=== PATIENT | male | born 1935 | race Caucasian/White ===

== ENCOUNTER 2016-12-01 06:08 | Day surgery (SDC) | payer BC ==
--- NOTE | ~2016-12-01 | OP ---
Record Of Operation [facility] [address] [place] [place]. [address] NAME: AUSTIN HANKS : 37 STATUS : REG [facility] [place] PAT#: [id number] AGE: 81 ADM/REG DATE : 12/01/16 MR#: [id number] REPORT SERV DATE: 12/01/16 DICTATED BY: YASMANY HADLEY JR. DATE: 12/01/16 REPORT STATUS : Draft TRANSCRIBED BY: MODL DATE: 12/01/16 DATE OF PROCEDURE: 12/01/2016 PREOPERATIVE DIAGNOSES: Left lower lobe lung mass, mediastinal lymphadenopathy, rule out metastatic bronchogenic carcinoma, chronic atrial fibrillation, chronic obstructive pulmonary disease, hypertension, left pleural effusion. POSTOPERATIVE DIAGNOSIS: Metastatic squamous cell carcinoma. NAME OF OPERATION: Diagnostic and therapeutic bronchoscopy, bronchioalveolar lavage, left lower lobe, endobronchial ultrasound with multiple fine-needle aspirations, mo stations 4L and 7. SURGEON: Yasmany Hadley M.D. RESIDENT SURGEON: Celestino Lyons MD ANESTHESIOLOGIST: Shashi Alamo M.D. FINDINGS: The patient was noted to have an extrinsic compression and narrowing of the left lower lobe bronchus. Distal into the bronchus there was a tumor seen within the airway. This was not biopsied, but was lavaged. It is difficult to get to the actual tumor to biopsy. Endobronchial ultrasound confirmed pathologic lymph nodes in the subcarinal, paratracheal, and hilar regions. We do not stick in the hilar region because it was difficult to avoid the mass. We would not be able to get lymph nodes. The 4R lymph nodes demonstrated metastatic squamous cell carcinoma. The subcarinal lymph nodes had lymphocytes, but no definitive tumor cells. Additional material sent for cell block. Final pathology is pending. DETAILS OF OPERATION: After adequate general anesthesia, the patient was intubated with an LMA. We were having difficulty ventilating him, so we changed to an endotracheal tube. Diagnostic and therapeutic bronchoscopy was performed with the above findings noted. Bronchoalveolar lavage was performed on the left lower lobe. Endobronchial ultrasound was then performed with pathologic lymph nodes in the paratracheal, subcarinal, and hilar regions. Nodes from the left paratracheal and subcarinal were biopsied. Metastatic squamous cell was confirmed. Additional material sent for cell block. Final pathology is pending. This patient is not a surgical candidate. We will await final pathology. /STACIA Yasmany Hadley Jr., M.D. / [id number] Record Of Operation [address] [address] NAME: AUSTIN HANKS : 37 STATUS : REG [facility] – [place] PAT#: [id number] AGE: 81 ADM/REG DATE : 12/01/16 MR#: [id number] REPORT SERV DATE: 12/01/16 DICTATED BY: YASMANY HADLEY JR. DATE: 12/01/16 REPORT STATUS : Draft TRANSCRIBED BY: STACIA DATE: 12/01/16 CC: Jamal Norris Jr., ANDERS EUGENE Robert F Marcum, M.D.
[~2016-12-01 06:08] MED LIST: ALBUTEROL INH; FLOMAX4 PO; JANTOVEN7.5 MG PO; L20 PO; LOP50 PO; PRADAXA150 MG PO; PROAIR HFA INH; PROSCAR5 PO; REOCYTE PLUS PO; SPIRIVA INH; T PO; VOLT75 PO; ZOCOR20 PO
[2016-12-01 06:33] LABS: HEMATOCRIT 41.6 % (40.0-51.0); HEMOGLOBIN 13.7 g/dL (13.6-17.8)
[2016-12-01 06:41] LABS: INTERNATIONAL NORMAL RATI 1.2 UNITS (-); PROTIME (NOT ORD) 14.8 SEC (12.0-14.5)
[2016-12-01 06:53] LABS: BUN (BLOOD UREA NITROGEN) 18 MG/DL (6-23); CHLORIDE, SERUM 108 MMOL/L (96-112); CO2 (CARBON DIOXIDE) 30 MMOL/L (24-34); GFR AFRICAN AMERICAN 38 ML/MIN (>=60); GFR NON AFRICAN AMERICAN 33 ML/MIN (>=60); GLUCOSE, SERUM 94 MG/DL (60-99); POTASSIUM, SERUM 4.7 MMOL/L (3.5-5.3); SODIUM, SERUM 141 MMOL/L (135-148)
[2016-12-02] MEDS ORDERED: LOP50 PO (12:40)
[2016-12-02] MEDS ORDERED: JANTOVEN7.5 MG PO (12:40)
[2016-12-02] MEDS ORDERED: ZOCOR20 PO (12:40)
[2016-12-02] MEDS ORDERED: SPIRIVA INH (12:40)
[2016-12-02] MEDS ORDERED: FLOMAX4 PO (12:40)
[2016-12-02] MEDS ORDERED: PROAIR HFA INH (12:41)
[2016-12-02] MEDS ORDERED: DUONEB INH (12:41)
[2016-12-02] MEDS ORDERED: ACET500CAP PO (12:41)
== END 2016-12-01 23:59 | disposition home health service (06) ==
LOC: DMU 06:08
PROVIDERS: Anesthesiology; Thoracic Surgery (Cardiothoracic Vascular Surgery)
PROC: 0B9B8ZZ Drainage of Left Lower Lobe Bronchus, Via Natural or Artificial Opening Endoscopic (ICD-10-PCS; principal; 2016-12-01 08:00)
PROC: 0B9B8ZX Drainage of Left Lower Lobe Bronchus, Via Natural or Artificial Opening Endoscopic, Diagnostic (ICD-10-PCS; 2016-12-01 08:00)
DX: C78.02 Secondary malignant neoplasm of left lung (principal); J44.9 Chronic obstructive pulmonary disease, unspecified; E78.5 Hyperlipidemia, unspecified; I12.9 Hypertensive chronic kidney disease with stage 1 through stage 4 chronic kidney disease, or unspecified chronic kidney disease; G47.33 Obstructive sleep apnea (adult) (pediatric); I73.9 Peripheral vascular disease, unspecified; Z87.891 Personal history of nicotine dependence; Z88.0 Allergy status to penicillin; Z79.899 Other long term (current) drug therapy; I48.2 Chronic atrial fibrillation; N18.9 Chronic kidney disease, unspecified; E66.01 Morbid (severe) obesity due to excess calories; Z79.01 Long term (current) use of anticoagulants; N40.0 Benign prostatic hyperplasia without lower urinary tract symptoms; Z99.81 Dependence on supplemental oxygen; I25.10 Atherosclerotic heart disease of native coronary artery without angina pectoris
CPT/HCPCS: 80048; 85014; 85018; 85610; 88112; 88172; 88173; 88177; 88305; 93005; A9270-GY; C1725; J0330; J2250; J2370; J2405; J3010

== ENCOUNTER 2016-12-02 11:26 | Inpatient (IN) | payer BC ==
--- NOTE | ~2016-12-02 | HP ---
History And Physical [place] [id number] [facility] [place]. [address] NAME: AUSTIN HANKS : 37 STATUS : ADM IN [facility]#: [id number] AGE: 81 ADM/REG DATE : 12/02/16 MR#: [id number] REPORT SERV DATE: 12/02/16 DICTATED BY: TORY GARCIA DATE: 12/02/16 REPORT STATUS : Draft TRANSCRIBED BY: MODFany DATE: 12/02/16 DATE OF ADMISSION: 12/02/2016 CHIEF COMPLAINT: Shortness of breath. HISTORY OF PRESENT ILLNESS: The patient is a very pleasant 81-year-old white male. The patient underwent imaging studies and ultimately was found to have a new mass on CT in the left infrahilar region apparently. He actually went for bronchoscopy yesterday with Dr. Hadley. He was unable to biopsy the mass, but did biopsy lymph nodes, in preliminary, it looks like he has metastatic squamous cell carcinoma. The patient normally wears about 4 liters of O2 at night and 2 liters during the day p.r.n. He states over the last 48 hours he has had increased shortness of breath. He has a cough, but that is somewhat chronic. He has blood-tinged sputum at times, that too is chronic. He had an attempted bronch on 11/10 out in [place] with his primary transliterator, but he was unable to reach the mass, thus he was referred to Dr. Hadley for EBUS. His shortness of breath seems to get worse with any kind of activity. He is okay resting on 2 liters. He has had no chest pain. No nausea, vomiting, or diarrhea. No abdominal pain. No other real symptoms other than dyspnea. He has had some ankle and feet that have been swollen. PAST MEDICAL HISTORY: 1. Newly diagnosed squamous cell lung CA, considered metastatic and diagnosis due to lymph node involvement. Official path is pending. 2. Hemoptysis. 3. AFib. 4. COPD on 4 liters at night and 2 liters during the day. 5. Hyperlipidemia. 6. Hypertension. 7. Previous left-sided pleural effusion, status post thoracentesis in October. 8. Sleep apnea, but does not comply with CPAP. 9. CKD with baseline creatinine around 1.9. His CKD is due to effectively a solitary kidney following an injury to the kidney in surgery. 10.Left bundle-branch block, which is chronic. PAST SURGICAL HISTORY: He has had a colon resection, bilateral total knee arthroplasties, leg femur repair from a fracture, facial fracture repair, and TURP. FAMILY HISTORY: CAD in his mom. CHF in his mom. Stomach cancer in his dad. ALLERGIES: PENICILLIN. SOCIAL HISTORY: He quit smoking about 20 years ago. He smoked one and a half packs per day for 40 years. He uses occasional alcohol. REVIEW OF SYSTEMS: A full 10-point review of systems obtained, pertinent positives are mentioned in the HPI. History And Physical [address] [address] NAME: AUSTIN HANKS : 37 STATUS : ADM IN [facility]#: [id number] AGE: 81 ADM/REG DATE : 12/02/16 MR#: [id number] REPORT SERV DATE: 12/02/16 DICTATED BY: TORY GARCIA DATE: 12/02/16 REPORT STATUS : Draft TRANSCRIBED BY: STACIA DATE: 12/02/16 PHYSICAL EXAMINATION: GENERAL: Well-developed white male, in no apparent distress. HEENT: Normocephalic and atraumatic. Throat is clear. NECK: Supple. HEART: Irregularly irregular, but no murmurs, rubs, or gallops. LUNGS: He has expiratory wheezing in the lower lobes and he is diminished at the left base. ABDOMEN: Soft, nontender, and nondistended. EXTREMITIES: Warm and dry. He has 1 to 2+ pedal edema. NEURO: He is alert. He is oriented to person, place, and time. He has symmetrical strength and tone in all four extremities. SKIN: He has no active rashes or lesions. PSYCH: His mood and affect are appropriate. LABORATORY AND X-RAY: White count is 8, H and H 12 and 36, platelet count is 156. Coags are normal. Chemistry panel is normal other than a BUN of 21, creatinine 1.72, and glucose 118. Troponin 0.02. PA and lateral chest x-ray shows increased left pleural effusion and left lower lobe consolidation and some mild volume overload or CHF pattern. BNP is 372. Lactate is 1.3. Procalcitonin is 0.05. EKG shows a chronic left bundle. ASSESSMENT/PLAN: 1. Dyspnea with relative hypoxemia upon ambulation. Differential is broad. However, given his findings on chest x-ray, one would suspect he either has reaccumulation of pleural effusion plus or minus pneumonia and also must consider pulmonary edema. His last ejection fraction on stress test was normal. I am going to do an echo just to be sure his BNP is up slightly, but he has chronic kidney disease, it is difficult to tell. I think we have to consider this could be effusion, could be pneumonia, I am going to do CT of the chest to further evaluate the area. I am going to cover him for pneumonia with empiric cefepime and vancomycin given the fact that he just had a procedure yesterday. We will culture his blood, his sputum. Once his CT is back, we can determine whether or not this is fluid or not, and if it is, we may perform thoracentesis. He does have a slightly elevated BNP and evidence of possibly some edema on chest x-ray, I think it is reasonable to give him a couple of doses of Lasix just to see if this improves his symptomatology. We will continue his O2. We will place him on aggressive bronchodilator therapy and Dr. Hadley was called by the ER and he is going to see the patient in consultation given that he just had a procedure yesterday. 2. Newly diagnosed probable squamous cell carcinoma of the lung, per Dr. Hadley, we will need to have referral outpatient oncology at discharge. 3. Atrial fibrillation, currently off Pradaxa, rate controlled. 4. Chronic obstructive pulmonary disease, wears 4 liters at h.s. and wearing 2 liters during the day p.r.n. Again, aggressive bronchodilator therapy and oxygen. 5. History of obstructive sleep apnea, noncompliant with CPAP. 6. History of hypertension. 7. Chronic kidney disease, stable in the baseline of 1 liter. We will need to watch closely with Lasix. 8. Deep venous thrombosis prophylaxis. Subcutaneous heparin. 9. Disposition. Pending above. History And Physical [address] [place]. [address] NAME: AUSTIN HANKS : 37 STATUS : ADM IN [facility]#: [id number] AGE: 81 ADM/REG DATE : 12/02/16 MR#: [id number] REPORT SERV DATE: 12/02/16 DICTATED BY: TORY GARCIA DATE: 12/02/16 REPORT STATUS : Draft TRANSCRIBED BY: STACIA DATE: 12/02/16 MARCOS/STACIA Tory Garcia M.D. / [id number] CC: Emani Ramires MD
--- NOTE | ~2016-12-02 | DS ---
Discharge Summary [facility] [address] [place]. [address] NAME: AUSTIN HANKS : 37 STATUS : DIS IN PAT#: [id number] AGE: 81 ADM/REG DATE : 12/02/16 MR#: [id number] REPORT SERV DATE: 12/10/16 DICTATED BY: DATE: REPORT STATUS : Draft TRANSCRIBED BY: MODL DATE: 12/06/16 ADMISSION DATE: 12/02/2016 DISCHARGE DATE: 12/06/2016 CONSULTANTS: Included Critical Care Medicine, Hematology-Oncology, Radiation Oncology, Thoracic Surgery. DISCHARGE DIAGNOSES: 1. Stage IIIB non-small cell lung cancer-declining chemotherapy and radiation therapy. Electing for hospice intake post-discharge. 2. Acute hypoxemic hypercapnic respiratory failure. 3. Acute exacerbation of chronic obstructive pulmonary disease. 4. Postobstructive pneumonia. 5. Atrial fibrillation with rapid ventricular response at admission. 6. Acute congestive heart failure exacerbation, systolic. Ejection fraction 30%. Unknown chronicity. 7. Chronic kidney disease stage III and history of solitary kidney. 8. Obstructive sleep apnea with history of CPAP noncompliance. IMAGIN. PA and lateral chest x-ray 12/02/2016 shows increasing left pleural effusion and left lower lobe consolidation. Mild volume overload or CHF pattern. No evidence of pneumothorax or pneumomediastinum. 2. Chest CT without contrast 12/02/2016 increased prominence of dense masslike consolidation in the anterior left lower lobe extending from the base to the hilum, now measuring 3.9 x 5.3 cm. May represent lung neoplasm versus underlying infectious or inflammatory process. Increased size of reticulonodular opacity in the left upper lobe. Significantly increased bulky mediastinal lymphadenopathy. Diffuse ground-glass density and interlobular septal thickening throughout the lungs likely representing edema. Moderate left pleural effusion and small right pleural effusion. Severe chronic appearing left hydronephrosis with prominent renal cortical thinning on the left. Cholelithiasis but no CT evidence for acute cholecystitis. Stable mild cardiomegaly with moderate coronary artery calcification. 3. Portable chest x-ray 12/02/2016 shows stable chest x-ray. 4. Echocardiogram 12/03/2016 moderate severe left ventricle dysfunction at 30%. [place] appears akinetic. Moderately decreased right ventricle systolic function. No significant valvular dysfunction. No prior study for comparison. 5. PA and lateral chest x-ray 12/06/2016 shows vascular congestion has resolved. Residual left pleural effusion and left lower lobe atelectasis are unchanged from prior study. PERTINENT LABS: On admission, pH 7.33, pCO2 46, pO2 92, oxygen saturation 97% on BiPAP with FiO2 40%. Creatinine values ranging from 1.9 to 2.0 during the admission. Normal electrolytes. Troponin x two negative. BNP 372. Lactate 2.3. Initial white blood cell count 12.2, as high as 18.1 with discharge value 13.7, hemoglobin 14.1, hematocrit 43.3, and platelets 185. INR at discharge 1.3. Discharge Summary [place] [address] [place]. [address] NAME: AUSTIN HANKS : 37 STATUS : DIS IN PAT#: [id number] AGE: 81 ADM/REG DATE : 12/02/16 MR#: [id number] REPORT SERV DATE: 12/10/16 DICTATED BY: DATE: REPORT STATUS : Draft TRANSCRIBED BY: MODL DATE: 12/06/16 BRIEF HISTORY: For full details, please see the previously dictated history of present illness by Dr. Denise Garcia. The patient was admitted from the emergency department on 12/02/2016 after presenting with increasing shortness of breath following a bronchoscopy with lymph node biopsy on . Preliminary pathology was consistent with metastatic squamous cell carcinoma. He was admitted to [facility] for further evaluation but immediately developed respiratory decompensation and was transferred to the intensive care unit for continuous BiPAP therapy. HOSPITAL COURSE: There is no interim summary for dates of service in the intensive care unit, but from review of the progress notes it appears that the patient was managed on continuous BiPAP for approximately 24 hours, diuresed, continued on IV antibiotics of cefepime and vancomycin. The etiology of his acute on chronic hypercapnic respiratory failure was multifactorial and felt due to acute exacerbation of COPD with post-obstructive pneumonia and acute pulmonary edema with newly diagnosed ejection fraction of 30%. The patient improved in response to those measures and was able to be transferred out of the Intensive Care Unit on the afternoon of 12/03/2016. I assumed care of him on 12/04/2016. He had no dyspnea and his oxygen requirements were stable on his home oxygen needs of two to four liters by nasal cannula. He had been seen by Thoracic Surgery and was felt to be a nonoperative candidate due to advanced lung cancer at diagnosis as well as comorbid conditions. Consultation was obtained from Medical Oncology who outlined several different treatment options for the patient including concurrent chemotherapy and radiation therapy, palliative radiation therapy, immunotherapy, or palliation with hospice. The patient took several days to think about this and discuss with his family, and ultimately elected for hospice measures only. He is being discharged home today, and [facility] will follow up with him at home to complete the intake process. Regarding his atrial fibrillation with rapid ventricular response, rates are much improved with the addition of Cardizem to his regimen which we continued at discharge. His Coumadin was resumed during the hospitalization with subtherapeutic INR at discharge and will need to be followed by home health or hospice. He is also being discharged on a diuretic to prevent reaccumulation of pulmonary edema and pleural effusions, and an additional four days of antibiotics to complete a seven-day total course for postobstructive pneumonia. DISPOSITION: To home in the care of supportive family, to continue using oxygen two to four liters continuously, with followup as per [facility]. DISCHARGE MEDICATIONS: 1. Cardizem 30 mg p.o. twice a day. 2. Furosemide 40 mg p.o. daily. 3. Levaquin 750 mg p.o. every 48 hours x two doses on 12/07/2016 and 12/09/2016. 4. Lopressor 50 mg p.o. twice a day. 5. Simvastatin 20 mg p.o. at bedtime. 6. Flomax 0.4 mg p.o. at bedtime. 7. Warfarin 7.5 mg p.o. at bedtime. Discharge Summary [address] [address] NAME: AUSTIN HANKS : 37 STATUS : DIS IN PAT#: [id number] AGE: 81 ADM/REG DATE : 12/02/16 MR#: [id number] REPORT SERV DATE: 12/10/16 DICTATED BY: DATE: REPORT STATUS : Draft TRANSCRIBED BY: MODL DATE: 12/06/16 8. Flagyl 500 mg p.o. every 8 hours for four days. 9. ProAir HFA two puffs inhaled as needed for shortness of breath. 10.Spiriva one cap inhaled daily. 11.DuoNeb one neb inhaled four times a day as needed for shortness of breath. 12.Tylenol 500 mg p.o. daily as needed for pain. 13.Medrol Dosepak, dispense one and take as directed. Thirty minutes were spent in completion of the discharge. DICTATED BY: Jamal Nuno/STACIA Ashish Reyna M.D. / [id number] CC: Jamal Nuno MD [facility]
--- NOTE | ~2016-12-02 | CN ---
Consultation Report [facility] [address] [place]. [address] NAME: AUSTIN HANKS : 37 STATUS : ADM IN PAT#: [id number] AGE: 81 ADM/REG DATE : 12/02/16 MR#: [id number] REPORT SERV DATE: 12/02/16 DICTATED BY: ROMAN GONZALEZ DATE: 12/02/16 REPORT STATUS : Draft TRANSCRIBED BY: MODL DATE: 12/02/16 DATE OF CONSULTATION: HISTORY OF PRESENT ILLNESS: This is an 81-year-old white male who was admitted today, 12/02/2016, one day after having had bronchoscopy/endobronchial ultrasound. He has a known left lower lobe lung mass and had an endobronchial ultrasound with biopsies of level 7 and level 4L lymph nodes. The level 4L lymph node was positive for malignancy. Apparently from talking to Dr. Hadley's mid-level, the patient had pleural effusion that was tapped recently and it was deemed to be not malignant. We are waiting for records from his office to verify that and get more information. He was admitted today for worsening shortness of breath since his surgery. He went to the floor and a rapid response team was called for increasing shortness of breath and wheezing and accessory muscle use. By the time I got to the room, the patient was on bilevel 20/8 and his tidal volumes were between 600 and 700 mL of exhaled tidal volume. His FiO2 was 100% and he was breathing much calmer. Both his daughter and son were present at bedside. Chest x-ray done at the time of the rapid response showed a density in the left lower lobe, it could probably consistent with his known pleural effusion and lung mass. Otherwise, no evidence of pneumothorax. There are some marked increased interstitial lung markings. The EKG did show atrial fibrillation with increased heart rate. REVIEW OF SYSTEMS: He has a little bit of blood tinge cough one time at home prior to coming to the hospital. He states that he is feeling much better since being on the bilevel machine. Apparently, he has had no other issues of chest pain, nausea, vomiting, abdominal pain, diarrhea, or fever at home. No worsening leg swelling or rashes or change in his mentation. PAST MEDICAL HISTORY: Hypertension, atrial fibrillation, COPD, newly diagnosed non-small cell lung cancer, chronic kidney dysfunction, and obesity. PAST SURGICAL HISTORY: Partial colon resection, surgery after fractured femur, and bilateral knee replacement for arthritis. ALLERGIES: PENICILLIN. HOME MEDICATIONS: Reviewed. FAMILY HISTORY: actually of lung cancer. PHYSICAL EXAMINATION: VITAL SIGNS: Per nursing flow sheet. GENERAL: [id number] distress, but much better on the bilevel machine. The patient is alert. NEURO: The patient moves all extremities. Cooperative, maintains good eye contact. HEENT: Normocephalic and atraumatic. Consultation Report [address] [place]. [address] NAME: AUSTIN HANKS : 37 STATUS : ADM IN [facility]#: [id number] AGE: 81 ADM/REG DATE : 12/02/16 MR#: [id number] REPORT SERV DATE: 12/02/16 DICTATED BY: ROMAN GONZALEZ DATE: 12/02/16 REPORT STATUS : Draft TRANSCRIBED BY: STACIA DATE: 12/02/16 NECK: Trachea midline. HEART: Tachycardic and irregular. No murmurs. LUNGS: Decreased breath sounds at the lung bases. No significant accessory muscle use on bilevel 20/8. No obvious wheeze. GI: Mild abdominal hernia that is reducible. Soft, nontender, nondistended. No guarding, rebound, or rigidity. EXTREMITIES: Trace bilateral leg edema. SKIN: No obvious rash or mottling. LABORATORY DATA: Reviewed. CAT scans and chest x-rays were reviewed. ASSESSMENT/PLAN: 1. Acute hypercapnic respiratory failure. 2. Chronic obstructive pulmonary disease. 3. Newly diagnosed non-small cell lung cancer, at least stage III. 4. Atrial fibrillation with rapid ventricular response. 5. Left greater than right pleural effusion. 6. Chronic kidney disease. The patient moved to the ICU for further monitoring. The patient will stay on the bilevel machine for now. DuoNeb every four hours around the clock. He is a full code at this point in time. Stop the Spiriva for now. Add Solu-Medrol for the wheeze. Given atrial fibrillation, we will have Cardizem drip available and try to keep his heart rate less than 110. He is on DVT prophylaxis with subcu heparin right now. Check morning labs. He is on one antibiotic that was started by the hospitalist team. We will monitor for signs of infection and determine whether to continue this or stop it. Son and daughter were updated. 40 minutes of critical care time. CEP/MODL Roman Gonzalez DO / [id number] CC: Emani Ramires MD
--- NOTE | ~2016-12-02 | CONSULT ---
Radiation Oncology Consult [address] [address] NAME: AUSTIN DELAROSA : 37 STATUS : DIS IN PAT#: [id number] AGE: 81 ADM/REG DATE : 12/02/16 MR#: [id number] REPORT SERV DATE: 12/08/16 DICTATED BY: DANIEL WALLER DATE: 12/08/16 REPORT STATUS : Draft TRANSCRIBED BY: MODFany DATE: 12/08/16 RADIATION ONCOLOGY CONSULTATION HISTORY OF PRESENT ILLNESS: Mr. Delarosa is an 81-year-old gentleman, recently diagnosed with at least stage III non-small cell lung cancer. The patient has a poor performance status and lives in [facility]. CT scan of his chest reveals a 3.9 x 5.3 cm left lower lobe primary which lies behind the heart. In addition, there is bulky mediastinal lymphadenopathy with metastatic nodes on both sides. In addition, he has bilateral pleural effusions, left greater than right. The patient is ready for discharge. He has been offered hospice care to which he is leaning. Radiation Oncology has been consulted for any need for palliative treatment. In consultation today, Mr. Delarosa denies any hemoptysis, chest pain, or swallowing difficulties. ALLERGIES: PENICILLIN. MEDICATIONS: See MAR. FAMILY HISTORY: Positive for coronary artery disease, congestive heart failure, and gastric cancer. SOCIAL HISTORY: The patient quit smoking 20 years ago. His recently . He lives with his daughter. REVIEW OF SYSTEMS: An extended review of systems was performed. It was negative for fever, chills, night sweats, or weight loss. PHYSICAL FINDINGS: GENERAL: Reveals a pleasant, elderly white male with nasal oxygen in place. There is no supraclavicular lymphadenopathy. LUNGS: Lungs were not auscultated. ABDOMEN: Abdomen was not examined. EXTREMITIES: Without cyanosis or clubbing. PSYCH: Alert and oriented x3. NEUROLOGIC: Grossly intact. X-RAYS: Recent CT scan of the chest was personally reviewed by me. IMPRESSION: At least stage IIIB non-small cell lung cancer with the PS of 2. RECOMMENDATION: Since Mr. Delarosa is not experiencing hemoptysis, chest pain, or dysphagia, there are no symptoms to palliate with radiation. He is very comfortable with the suggestion of going home under the care of hospice. His daughter has already identified a local hospice that can care for him. I again explained what symptoms would need palliative treatment, none of which Mr. Delarosa is experiencing at this point. I am comfortable with this decision and will be available as needed. Radiation Oncology Consult [address] [place] [place]. [address] NAME: AUSTIN DELAROSA : 37 STATUS : DIS IN PAT#: [id number] AGE: 81 ADM/REG DATE : 12/02/16 MR#: [id number] REPORT SERV DATE: 12/08/16 DICTATED BY: DANIEL WALLER DATE: 12/08/16 REPORT STATUS : Draft TRANSCRIBED BY: STACIA DATE: 12/08/16 EE/STACIA Daniel Waller M.D. / [id number] CC: Jamal Nuno MD
--- NOTE | ~2016-12-02 | CN ---
Consultation Report [facility] [address] [place]. [address] NAME: AUSTIN DELAROSA : 37 STATUS : ADM IN PAT#: [id number] AGE: 81 ADM/REG DATE : 12/02/16 MR#: [id number] REPORT SERV DATE: 12/04/16 DICTATED BY: CRIS LAIRD DATE: 12/04/16 REPORT STATUS : Draft TRANSCRIBED BY: MODL DATE: 12/04/16 ONCOLOGY CONSULTATION DATE OF CONSULTATION: REASON FOR CONSULTATION: Rwu-azsxv-cams lung cancer. CHIEF COMPLAINT: Shortness of breath. HISTORY OF PRESENT ILLNESS: The patient is a troy 81-year-old male with past medical history significant for atrial fibrillation, COPD, hypertension, hyperlipidemia, chronic kidney disease, HARJEET, left bundle branch block. He states that he has had a close followup with Pulmonology in [place], [place]. He has had multiple PET-CT scans, which showed an enlarging left lower lobe nodule. He also had left-sided thoracentesis, which was nondiagnostic. He had several attempts at bronchoscopy, which were nondiagnostic. He was referred to Dr. Hadley, who attempted bronchoscopy and endobronchial ultrasound yesterday. 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 The patient was briefly observed in the ICU, then transferred to the floor. Currently, he is hypoxic, on 4 L of oxygen nasal cannula. He is afebrile. He has shortness of breath with very mild exertion. He denies hemoptysis or weight loss. PAST MEDICAL HISTORY: 1. Kmd-hidst-lczt lung cancer. 2. Atrial fibrillation. 3. COPD. 4. Hyperlipidemia. 5. Hypertension. 6. Obstructive sleep apnea. 7. Chronic kidney disease. 8. Left bundle branch block. ALLERGIES: PENICILLIN. MEDICATIONS: Current medications include cefepime, diltiazem, heparin, Solu-Medrol, metoprolol, simvastatin, tamsulosin, and p.r.n. medications for pain and nausea. FAMILY HISTORY: Notable for coronary artery disease, CHF, and gastric cancer in his father. SOCIAL HISTORY: Quit smoking 20 years ago. The patient smoked 1 to 1-1/2 packs per day for 40 years. Social alcohol only. Very supportive and loving family. REVIEW OF SYSTEMS: An 11 system review of systems was obtained and is negative except for the history of Consultation Report [place] [id number] [facility] [place]. [address] NAME: AUSTIN DELAROSA : 37 STATUS : ADM IN PAT#: [id number] AGE: 81 ADM/REG DATE : 12/02/16 MR#: [id number] REPORT SERV DATE: 12/04/16 DICTATED BY: CRIS LAIRD DATE: 12/04/16 REPORT STATUS : Draft TRANSCRIBED BY: MODL DATE: 12/04/16 present illness. PHYSICAL EXAMINATION: GENERAL: No acute distress, in pleasant spirits. VITAL SIGNS: Temperature 97.4, pulse 76, respirations 18, blood pressure 133/60, O2 saturation 97% on 4 L O2 by nasal cannula. HEAD: Atraumatic and normocephalic. EYES: Anicteric, extraocular movements intact. EARS, NOSE, THROAT: No thrush or mucositis. LYMPH NODE SURVEY: No palpable cervical, supraclavicular, or axillary lymph nodes. PULMONARY: Decreased breath sounds throughout with end-expiratory wheezes bilaterally. CARDIAC: Regular rate and rhythm without murmurs. ABDOMEN: Soft, nontender, and nondistended with bowel sounds. EXTREMITIES: No clubbing or cyanosis. Trace bilateral lower extremity edema. PSYCHIATRIC: Alert and oriented x3. Mood and affect are appropriate. Good insight. NEUROLOGIC: Grossly nonfocal. LABORATORY STUDIES: CBC-white count 18.1, hemoglobin 13, hematocrit 39%, platelets 163. Chemistries-significant for creatinine of 1.89. Imaging-I reviewed the CT scan personally. The left lower lobe mass is demonstrated with left greater than right-sided effusions. Mediastinal lymphadenopathy is apparent, both ipsilateral and contralateral to the tumor. ASSESSMENT AND PLAN: This is a very nice 81-year-old gentleman with multiple medical comorbidities, who presents with at least a stage III jsm-gppbk-jnff lung cancer. He also has significant hypoxia, underlying chronic obstructive pulmonary disease, chronic kidney disease, and borderline performance status. This is a very difficult situation. Therefore, options for care: 1. Concurrent chemoradiation therapy with curative intent. I do not think he would be able to tolerate this at the present time. I believe our success rate would be very low. 2. Palliative intent, short course radiation therapy. This would be with the intent to improve his oxygenation. I am unsure if this is possible and will need to confer with colleagues. 3. Immunotherapy with Keytruda or pembrolizumab. This would be a palliative, IV treatment, which will be done in the outpatient setting. This would only be possible if this tumor expressed high levels of PD-1. 4. Palliative or hospice care. I discussed these options with the patient and the family. Mr. Delarosa tells me that "I have lived 81 years." He feels that he has had a rich life, and at the current time, is considering palliative and hospice care alone. I will return tomorrow and then confer with colleagues as to the radiation option. The final plans to follow. Consultation Report [address] [place]. [address] NAME: AUSTIN DELAROSA : 37 STATUS : ADM IN PAT#: [id number] AGE: 81 ADM/REG DATE : 12/02/16 MR#: [id number] REPORT SERV DATE: 12/04/16 DICTATED BY: CRIS LAIRD. DATE: 12/04/16 REPORT STATUS : Draft TRANSCRIBED BY: STACIA DATE: 12/04/16 Thank you very much for this referral. [facility] Cris Laird M.D. / [id number] CC: Jamal Nuno
[2016-12-02 11:25] LABS: BASOPHILS 0.2 %; BASOPHILS ABSOLUTE 0.02 10/3/uL (0.0-0.16); EOSINOPHILS 3.3 %; EOSINOPHILS ABSOLUTE 0.27 10/3/uL (0.0-0.53); ER CBC TAT 0 Hrs 05 Mins; HEMOGLOBIN 11.9 g/dL (13.6-17.8); IMMATURE GRANULOCYTES 0.1 %; IMMATURE GRANULOCYTES ABSOLUTE 0.01 10/3/uL (0.0-0.11); LYMPHOCYTES ABSOLUTE 2.02 10/3/uL (0.67-4.30); MEAN CORPUS HGB CONC 32.8 g/dL (32.0-36.0); MEAN CORPUSCULAR HEMOGLOB 28.9 pg (26.0-34.0); MEAN PLATELET VOLUME 8.9 fL (9.2-13.0); MONOCYTES 12.4 %; NEUTROPHILS ABSOLUTE 4.75 10/3/uL (2.02-8.40); PLATELET COUNT 156 10/3/uL (150-400); RED CELL COUNT 4.12 10/6/uL (4.7-6.1); WHITE BLOOD CELLS 8.1 10/3/uL (4.5-10.5)
[2016-12-02 11:26] LABS: HEMATOCRIT 36.3 % (40.0-51.0); MANUAL DIFF NO %; MEAN CORPUSCULAR VOLUME 88.1 fL (80-100)
[2016-12-02 11:35] LABS: INTERNATIONAL NORMAL RATI 1.3 UNITS (-); PARTIAL THROMBO TIME 34.6 SEC (22.5-37.2); PROTIME (NOT ORD) 16.5 SEC (12.0-14.5)
[2016-12-02 11:42] LABS: BUN (BLOOD UREA NITROGEN) 21 MG/DL (6-23); CALCIUM, SERUM 8.3 MG/DL (8.5-10.4); CHEST PAIN PROFILE TAT 0 Hrs 22 Mins; CHLORIDE, SERUM 106 MMOL/L (96-112); CO2 (CARBON DIOXIDE) 31 MMOL/L (24-34); CREATININE 1.72 MG/DL (0.70-1.30); GFR AFRICAN AMERICAN 43 ML/MIN (>=60); GFR NON AFRICAN AMERICAN 37 ML/MIN (>=60); POTASSIUM, SERUM 4.7 MMOL/L (3.5-5.3); SODIUM, SERUM 140 MMOL/L (135-148); TROPONIN I 0.02 NG/ML (<0.05)
[2016-12-02 11:45] LABS: GLUCOSE, SERUM 118 MG/DL (60-99)
[2016-12-02] MEDS ORDERED: FLOMAX4 PO (12:40)
[2016-12-02] MEDS ORDERED: LOP50 PO (12:40)
[2016-12-02] MEDS ORDERED: SPIRIVA INH (12:40)
[2016-12-02] MEDS ORDERED: ZOCOR20 PO (12:40)
[2016-12-02] MEDS ORDERED: JANTOVEN7.5 MG PO (12:40)
[2016-12-02] MEDS ORDERED: DUONEB INH (12:41)
[2016-12-02] MEDS ORDERED: ACET500CAP PO (12:41)
[2016-12-02] MEDS ORDERED: PROAIR HFA INH (12:41)
[2016-12-02 17:36] LABS: BASOPHILS 0.2 %; BASOPHILS ABSOLUTE 0.03 10/3/uL (0.0-0.16); EOSINOPHILS 1.8 %; EOSINOPHILS ABSOLUTE 0.22 10/3/uL (0.0-0.53); HEMOGLOBIN 13.6 g/dL (13.6-17.8); IMMATURE GRANULOCYTES 0.2 %; IMMATURE GRANULOCYTES ABSOLUTE 0.03 10/3/uL (0.0-0.11); LYMPHOCYTES 11.5 %; LYMPHOCYTES ABSOLUTE 1.41 10/3/uL (0.67-4.30); MEAN CORPUS HGB CONC 32.9 g/dL (32.0-36.0); MEAN CORPUSCULAR VOLUME 88.1 fL (80-100); MEAN PLATELET VOLUME 9.4 fL (9.2-13.0); MONOCYTES 7.9 %; MONOCYTES ABSOLUTE 0.97 10/3/uL (0.21-1.20); NEUTROPHILS 78.4 %; NEUTROPHILS ABSOLUTE 9.57 10/3/uL (2.02-8.40); PLATELET COUNT 151 10/3/uL (150-400); RBC DISTRIBUTION WIDTH 14.8 % (12.0-16.0); RED CELL COUNT 4.69 10/6/uL (4.7-6.1)
[2016-12-02 17:38] LABS: HEMATOCRIT 41.3 % (40.0-51.0); MANUAL DIFF NO %; WHITE BLOOD CELLS 12.2 10/3/uL (4.5-10.5)
[2016-12-02 17:41] LABS: ALBUMIN 3.2 G/DL (3.5-5.0); BUN (BLOOD UREA NITROGEN) 20 MG/DL (6-23); CHLORIDE, SERUM 107 MMOL/L (96-112); CREATININE 1.81 MG/DL (0.70-1.30); GFR AFRICAN AMERICAN 40 ML/MIN (>=60); GFR NON AFRICAN AMERICAN 35 ML/MIN (>=60); GLUCOSE, SERUM 136 MG/DL (60-99); POTASSIUM, SERUM 4.6 MMOL/L (3.5-5.3); SGOT(AST) 29 U/L (5-40); SGPT(ALT) 23 U/L (5-65); SODIUM, SERUM 139 MMOL/L (135-148); TOTAL BILIRUBIN 0.7 MG/DL (0-1.2); TOTAL PROTEIN 7.8 G/DL (6.0-8.5); TROPONIN I 0.02 NG/ML (<0.05)
[2016-12-02 17:42] LABS: A/G RATIO 0.7 (0.7-1.9); ALKALINE PHOSPHATASE 69 U/L (45-117); CO2 (CARBON DIOXIDE) 24 MMOL/L (24-34); GLOBULIN 4.6 G/DL (2.5-4.1)
[2016-12-02 17:43] LABS: INTERNATIONAL NORMAL RATI 1.3 UNITS (-); PROTIME (NOT ORD) 16.1 SEC (12.0-14.5)
[2016-12-02 18:15] LABS: BE (BASE EXCESS) -2.1 MEQ/L (0 +/- 2.5); CARBOXYHEMOGLOBIN 0.9 % (0-3); INSTRUMENT SERIAL # 35151; METHEMOGLOBIN 0.5 % (0-3); O2 CONTENT 18.8 VOL% (18-24); PCO2 (CO2 TENSION) 46 MMHG (35-45); PO2 (O2 TENSION) 92 MMHG (79-93); SAMPLE Arterial; pH 7.33 (7.37-7.43)
[2016-12-02 18:16] LABS: ALLENS TEST Pos; BIPAP 20/8 cm.H2O
[2016-12-03 03:26] LABS: ALLENS TEST Pos; BE (BASE EXCESS) -0.4 MEQ/L (0 +/- 2.5); BIPAP 15/5 cm.H2O; CARBOXYHEMOGLOBIN 0.7 % (0-3); HCO3 (ACTUAL BICARBONATE) 24.9 MEQ/L (23-27); HEMOBLOGIN CONTENT 13.7 G/DL (14-18); INSTRUMENT SERIAL # 35151; METHEMOGLOBIN 0.4 % (0-3); O2 CONTENT 18.9 VOL% (18-24); OPERATOR ID 35785; PCO2 (CO2 TENSION) 43 MMHG (35-45); PO2 (O2 TENSION) 122 MMHG (79-93); SAMPLE Arterial; pH 7.38 (7.37-7.43)
[2016-12-03 04:11] LABS: BASOPHILS 0 %; EOSINOPHILS 0 %; HEMATOCRIT 39.4 % (40.0-51.0); HEMOGLOBIN 12.8 g/dL (13.6-17.8); IMMATURE GRANULOCYTES 0.3 %; IMMATURE GRANULOCYTES ABSOLUTE 0.02 10/3/uL (0.0-0.11); LYMPHOCYTES 10.2 %; LYMPHOCYTES ABSOLUTE 0.68 10/3/uL (0.67-4.30); MEAN CORPUS HGB CONC 32.5 g/dL (32.0-36.0); MEAN CORPUSCULAR HEMOGLOB 28.8 pg (26.0-34.0); MEAN CORPUSCULAR VOLUME 88.7 fL (80-100); MEAN PLATELET VOLUME 9.5 fL (9.2-13.0); MONOCYTES 3.3 %; MONOCYTES ABSOLUTE 0.22 10/3/uL (0.21-1.20); NEUTROPHILS 86.2 %; NEUTROPHILS ABSOLUTE 5.77 10/3/uL (2.02-8.40); PLATELET COUNT 157 10/3/uL (150-400); RBC DISTRIBUTION WIDTH 14.7 % (12.0-16.0); RED CELL COUNT 4.44 10/6/uL (4.7-6.1)
[2016-12-03 04:12] LABS: MANUAL DIFF NO %; WHITE BLOOD CELLS 6.7 10/3/uL (4.5-10.5)
[2016-12-03 04:36] LABS: A/G RATIO 0.7 (0.7-1.9); ALBUMIN 2.9 G/DL (3.5-5.0); CALCIUM, SERUM 8.8 MG/DL (8.5-10.4); CHLORIDE, SERUM 104 MMOL/L (96-112); CO2 (CARBON DIOXIDE) 26 MMOL/L (24-34); CREATININE 1.89 MG/DL (0.70-1.30); GFR AFRICAN AMERICAN 38 ML/MIN (>=60); GFR NON AFRICAN AMERICAN 33 ML/MIN (>=60); GLOBULIN 4.4 G/DL (2.5-4.1); PHOSPHORUS, SERUM 3.3 MG/DL (2.5-4.5); POTASSIUM, SERUM 5.3 MMOL/L (3.5-5.3); SGOT(AST) 25 U/L (5-40); SGPT(ALT) 21 U/L (5-65); SODIUM, SERUM 138 MMOL/L (135-148); TOTAL BILIRUBIN 0.7 MG/DL (0-1.2); TOTAL PROTEIN 7.3 G/DL (6.0-8.5)
[2016-12-03 04:37] LABS: ALKALINE PHOSPHATASE 57 U/L (45-117); BUN (BLOOD UREA NITROGEN) 26 MG/DL (6-23); GLUCOSE, SERUM 164 MG/DL (60-99)
[2016-12-03 05:42] LABS: PROCALCITONIN 0.45 ng/mL (<0.5)
[2016-12-04 07:39] LABS: BASOPHILS 0.1 %; BASOPHILS ABSOLUTE 0.01 10/3/uL (0.0-0.16); EOSINOPHILS 0 %; HEMATOCRIT 39.3 % (40.0-51.0); IMMATURE GRANULOCYTES 0.4 %; IMMATURE GRANULOCYTES ABSOLUTE 0.07 10/3/uL (0.0-0.11); LYMPHOCYTES 3.4 %; LYMPHOCYTES ABSOLUTE 0.61 10/3/uL (0.67-4.30); MEAN CORPUS HGB CONC 33.1 g/dL (32.0-36.0); MEAN CORPUSCULAR HEMOGLOB 28.4 pg (26.0-34.0); MEAN PLATELET VOLUME 9.6 fL (9.2-13.0); MONOCYTES 6.6 %; MONOCYTES ABSOLUTE 1.19 10/3/uL (0.21-1.20); NEUTROPHILS 89.5 %; NEUTROPHILS ABSOLUTE 16.19 10/3/uL (2.02-8.40); PLATELET COUNT 163 10/3/uL (150-400); RBC DISTRIBUTION WIDTH 15.1 % (12.0-16.0); RED CELL COUNT 4.57 10/6/uL (4.7-6.1)
[2016-12-04 07:40] LABS: MANUAL DIFF NO %; WHITE BLOOD CELLS 18.1 10/3/uL (4.5-10.5)
[2016-12-04 07:54] LABS: CALCIUM, SERUM 9.1 MG/DL (8.5-10.4); CHLORIDE, SERUM 105 MMOL/L (96-112); CO2 (CARBON DIOXIDE) 26 MMOL/L (24-34); CREATININE 2.02 MG/DL (0.70-1.30); GFR AFRICAN AMERICAN 35 ML/MIN (>=60); GFR NON AFRICAN AMERICAN 30 ML/MIN (>=60); GLUCOSE, SERUM 144 MG/DL (60-99); PHOSPHORUS, SERUM 3.5 MG/DL (2.5-4.5); POTASSIUM, SERUM 4.3 MMOL/L (3.5-5.3); SODIUM, SERUM 139 MMOL/L (135-148)
[2016-12-04 07:56] LABS: BUN (BLOOD UREA NITROGEN) 41 MG/DL (6-23)
[2016-12-06 06:10] LABS: BASOPHILS 0.1 %; BASOPHILS ABSOLUTE 0.01 10/3/uL (0.0-0.16); EOSINOPHILS 0 %; HEMOGLOBIN 14.1 g/dL (13.6-17.8); IMMATURE GRANULOCYTES 0.4 %; IMMATURE GRANULOCYTES ABSOLUTE 0.05 10/3/uL (0.0-0.11); LYMPHOCYTES 4.8 %; LYMPHOCYTES ABSOLUTE 0.66 10/3/uL (0.67-4.30); MEAN CORPUS HGB CONC 32.6 g/dL (32.0-36.0); MEAN CORPUSCULAR HEMOGLOB 28.7 pg (26.0-34.0); MEAN PLATELET VOLUME 9.6 fL (9.2-13.0); MONOCYTES 9.9 %; MONOCYTES ABSOLUTE 1.36 10/3/uL (0.21-1.20); NEUTROPHILS 84.8 %; NEUTROPHILS ABSOLUTE 11.63 10/3/uL (2.02-8.40); PLATELET COUNT 185 10/3/uL (150-400); RBC DISTRIBUTION WIDTH 15.3 % (12.0-16.0); RED CELL COUNT 4.92 10/6/uL (4.7-6.1); WHITE BLOOD CELLS 13.7 10/3/uL (4.5-10.5)
[2016-12-06 06:11] LABS: HEMATOCRIT 43.3 % (40.0-51.0); MANUAL DIFF NO %
[2016-12-06 06:15] LABS: INTERNATIONAL NORMAL RATI 1.3 UNITS (-)
[2016-12-06 06:23] LABS: BUN (BLOOD UREA NITROGEN) 53 MG/DL (6-23); CHLORIDE, SERUM 109 MMOL/L (96-112); CO2 (CARBON DIOXIDE) 29 MMOL/L (24-34); CREATININE 2.05 MG/DL (0.70-1.30); GFR AFRICAN AMERICAN 34 ML/MIN (>=60); GFR NON AFRICAN AMERICAN 30 ML/MIN (>=60); GLUCOSE, SERUM 133 MG/DL (60-99); SODIUM, SERUM 141 MMOL/L (135-148)
[2016-12-06] MEDS ORDERED: FLAG500TAB PO (16:37)
[2016-12-06] MEDS ORDERED: L40 PO (16:39)
[2016-12-06] MEDS ORDERED: CARD30 PO (16:39)
[2016-12-06] MEDS ORDERED: LEVAQUIN750 MG PO (16:41)
[2016-12-06] MEDS ORDERED: Medrol (16:43)
== END 2016-12-06 19:00 | disposition hospice, home (50) | DRG 291 ==
LOC: ER 11:26 → 7NO 14:19 → CCU 17:13 → 7NO 12-03 15:11 → SDC/OF 12-06 10:11 → 7NO 12-06 10:12
PROVIDERS: Emergency Medicine; Hospitalist; Internal Medicine; Internal Medicine Critical Care Medicine
PROC: 5A09357 Assistance with Respiratory Ventilation, Less than 24 Consecutive Hours, Continuous Positive Airway Pressure (ICD-10-PCS; principal; 2016-12-02)
DX: I13.0 Hypertensive heart and chronic kidney disease with heart failure and stage 1 through stage 4 chronic kidney disease, or unspecified chronic kidney disease (principal); I50.21 Acute systolic (congestive) heart failure; J96.02 Acute respiratory failure with hypercapnia; C77.1 Secondary and unspecified malignant neoplasm of intrathoracic lymph nodes; J44.1 Chronic obstructive pulmonary disease with (acute) exacerbation; C34.32 Malignant neoplasm of lower lobe, left bronchus or lung; Z99.81 Dependence on supplemental oxygen; I48.2 Chronic atrial fibrillation; J98.11 Atelectasis; N18.3 Chronic kidney disease, stage 3 (moderate); I44.7 Left bundle-branch block, unspecified; I73.9 Peripheral vascular disease, unspecified; E66.01 Morbid (severe) obesity due to excess calories; G47.33 Obstructive sleep apnea (adult) (pediatric); N40.0 Benign prostatic hyperplasia without lower urinary tract symptoms; I25.10 Atherosclerotic heart disease of native coronary artery without angina pectoris; Z51.5 Encounter for palliative care; Z88.0 Allergy status to penicillin; E78.5 Hyperlipidemia, unspecified; Z87.891 Personal history of nicotine dependence; Z90.49 Acquired absence of other specified parts of digestive tract; Z96.653 Presence of artificial knee joint, bilateral; Z79.899 Other long term (current) drug therapy; Z79.01 Long term (current) use of anticoagulants
CPT/HCPCS: 36600; 71010; 71020; 71250; 80048; 80053; 80069; 82330; 82803; 82805; 82947; 82962; 83605; 83735; 83880; 84100; 84132; 84145; 84295; 84484; 85014; 85018; 85025; 85610; 85730; 87040; 87641; 88305; 93005; 94640; 94660; 99285; A9270-GY; C8929; J0692; J1940; J2920; J3370; Q9957